=== PATIENT | male | born 1950 | race Caucasian/White ===

== ENCOUNTER → 2018-04-05 | Outpatient (CLI) | payer OTHER, BC ==
--- NOTE | ~2018-04-05 | EKG ---
[address] [address] ELECTROCARDIOGRAM REPORT Name: LONNY ROMERO Room #: [facility]#: [id number] Admission: 04/05/18 Attend Phys: Kevyn Candelaria MD, F Discharge: Date of : 54 Report #: [id number] THIS REPORT FOR: //name// [facility] Test Date: 2018-04-05 Test Time: 09:15:37 Pat Name: LONNY ROMERO Department: Room: Gender: [place]: : 1950 Requested By: Kevyn Candelaria Order Number: [id number] MD: David Croft Measurements Intervals Vance Rate: 60 P: 78 [place]: 160 QRS: 78 QRSD: 90 T: 72 QT: 424 QTc: 424 Interpretive Statements Sinus rhythm Normal tracing No previous ECG available for comparison Electronically Signed On 04-05-2018 9:49:27 CDT by David Croft [email or web address] <ELECTRONICALLY SIGNED> By: David Croft MD, [facility] 04/05/18 0949 0915 4 David Croft MD, [facility] /EPI
== END ==
LOC: RAD 08:42
DX: Z01.818 Encounter for other preprocedural examination (principal); R91.8 Other nonspecific abnormal finding of lung field